=== PATIENT | female | born 1945 | race Two or more races ===

== ENCOUNTER 2024-01-22 08:50 | Inpatient (IN) | payer OTHER ==
[~2024-01-22] VITALS: Ht 165.1 cm; Wt 86.2 kg
[~2024-01-22 08:50] MED LIST: HYZAAR 50-12.51 EACH
[2024-01-22] MEDS ORDERED: SIMVASTATIN5 MG PO (09:08)
[2024-01-22] MEDS ORDERED: XARELTO10 MG (09:09)
--- NOTE | 2024-01-22 09:09 | NUR ---
PTE REFIERE DOLOR ABDOMINAL ACOMPANAOID DE NAUSEAS Y VOMITOS . PTE REFIERE HERNIA EN ABDOMEN. PTE DEL .
[2024-01-22] MEDS ORDERED: ONDANSETRON HCL 2 MG/ML VIAL ONE (09:25)
[2024-01-22] MEDS ORDERED: FAMOTIDINE/PF 20 MG/2 ML VIAL ONE (09:25)
[2024-01-22] MEDS ORDERED: FAMOtidine 10 MG/ML (4ML VIAL) IV ONE (09:30)
[2024-01-22] MEDS ORDERED: ONDANSETRON HCL 2 MG/ML VIAL IV ONE (09:30)
[2024-01-22] MEDS ORDERED: 0.9 % SODIUM CHLORIDE 1,000 ML IV ONE (09:30)
--- NOTE | 2024-01-22 09:59 | NUR ---
PTE ES ORIENTADO POR WILLIS DESAI, LA MISMA REFIERE ENTENDER. SE CANALIZA PTE CON UN ANGIO #20 EN BRAZO GABRIEL, SE RECOLECTAN MUESTRAS DE LAB Y SE ADMINISTRAN MEDICAMENTOS JOSE ELIAS ORDEN MEDICA BAJO MEDIDAS ASEPTICAS.
[2024-01-22 10:00] LABS: ABG PO2 81.2 mmHg (80-100); ABG pCO2 40.9 mmHg (35-45); BASE EXCESS 2.1 mmol/l; BICARBONATE 26.6 mmol/l (23-25); SaO2 96.3 %; Tco2 27.8 mmol/l
[2024-01-22 10:10] LABS: allen test SATISFACTORY; o2 21 %; puncture site RADIAL RIGHT
[2024-01-22 10:21] LABS: HEMATOCRIT 46.4 % (36.0-45.00); HEMOGLOBIN 15.6 g/dL (12.0-15.00); MEAN CELL VOLUME 89.1 fL (80.00-100.00); MEAN CORPUSCULAR HEMOGLOBIN 29.9 pg (27.00-32.0); MEAN CORPUSCULAR HGB CONC 33.5 g/dl (32.0-36.0); PLATELET COUNT 214 K/uL (150-450); RED BLOOD COUNT 5.21 M/uL (4.00-6.00); RED CELL DISTRIBUTION WIDTH 14.6 % (11.5-14.5)
[2024-01-22 10:32] LABS: INR 1.2; PARTIAL THROMBOPLASTIN TIME 32.2 SECONDS (22.0-34.0); PROTHROMBIN TIME 12.9 SECONDS (9.0-11.5)
[2024-01-22 10:34] LABS: BILIRUBIN TOTAL 2.65 mg/dL (0.3-1.2); CALCIUM 9.9 mg/dL (8.5-10.1); CREATININE SERUM 0.85 mg/dL (0.55-1.02); GFR 64.35; GLOBULINA 3.7 G/DL (2.4-3.5); POTASSIUM 4.19 mEq/L (3.5-5.1); TOTAL PROTEIN 7.7 gm/dL (6.4-8.2)
[2024-01-22 10:44] LABS: D DIMER 1.73 MG/L
[2024-01-22 10:53] LABS: PH,URINE 6.5 (5.0-8.0); URINE APPEARANCE Clear; URINE BILIRRUBIN Negative (NEGATIVE); URINE BLOOD Small; URINE COLOR Yellow; URINE GLUCOSE Negative (NEGATIVE); URINE KETONE Negative (NEGATIVE); URINE LEUKOCYTE Moderate; URINE NITRATE Negative; URINE PROTEIN Negative (NEGATIVE)
[2024-01-22 10:56] LABS: URINE BACTERIA 608.5 uL (0.0-1933); URINE EPITHELIAL CELLS 31.6 uL (0.0-38.8); URINE WBC 164.4 uL (0.0-23.2)
--- NOTE | 2024-01-22 15:00 | NUR ---
SE RECIBE PACIENTE ALERTA Y ORIENTADA X 3 ESFERAS EN CAMA CON BARANDAS ELEVADAS POR SEGURIDAD. PRESENTANDO BUEN PATRON RESPIRATORIO. RECIBIENDO IV'S 0.9NSS BAJANDO A 100ML/HR AREA DE VENOPUNCION NICKOLAS DE EDEMA Y ERITEMA EN BRAZO DERECHO. PENDIENTE CONSULTA CON Y . SE MANTIENE EN OBSERVACION POR CAMBIOS EN CONDICION MEDICA.
[2024-01-22] MEDS ORDERED: 0.9 % SODIUM CHLORIDE 1,000 ML IV SCH (20:45)
[2024-01-22] MEDS ORDERED: PROMETHAZINE HCL 25 MG/ML AMPUL IV PRN (20:45)
[2024-01-22] MEDS ORDERED: ACETAMINOPHEN 500 MG GEL..CAP PO PRN (20:45)
[2024-01-22] MEDS ORDERED: ONDANSETRON HCL 4 MG in 0.9 % SODIUM CHLORIDE 50 ML IV PRN (20:45)
[2024-01-22] MEDS ORDERED: MEPERIDINE HCL/PF 25 MG/ML VIAL IV PRN (20:45)
[2024-01-22] MEDS ORDERED: CIPROFLOXACIN IN 5 % DEXTROSE 400 MG/200 ML PIGGYBAG IV ONE (21:00)
[2024-01-22] MEDS ORDERED: CIPROFLOXACIN IN 5 % DEXTROSE 200 ML IV SCH (21:00)
[2024-01-23] MEDS ORDERED: METRONIDAZOLE/SODIUM CHLORIDE 500 MG/100 ML PIGGYBACK IV ONE (00:37)
[2024-01-23] MEDS ORDERED: METRONIDAZOLE/SODIUM CHLORIDE 100 ML IV SCH (01:00)
[2024-01-23] MEDS ORDERED: LOSARTAN/HYDROCHLOROTHIAZIDE 1 UDTAB TABLET PO SCH (09:00)
[2024-01-23] MEDS ORDERED: PANTOPRAZOLE SODIUM 40 MG/VIAL VIAL IV SCH (09:00)
[2024-01-23] MEDS ORDERED: DILTIAZEM HCL 60 MG TABLET PO SCH (09:00)
[2024-01-23] MEDS ORDERED: RIVAROXABAN 20 MG TABLET PO SCH (09:00)
[2024-01-23] MEDS ORDERED: SIMVASTATIN 10 MG TABLET PO SCH (17:00)
[2024-01-24] MEDS ORDERED: DIATRIZOATE MEGLUMINE, SODIUM 30 ML BOTTLE PO NR (08:00)
[2024-01-24] MEDS ORDERED: GABAPENTIN 300 MG CAPSULE PO SCH (09:00)
== END 2024-01-26 14:29 | disposition home or self-care (01) | DRG 390 ==
LOC: ER 08:52 → MEDI 20:53 → SURH 20:53
PROVIDERS: General Practice; ADMIT Colon & Rectal Surgery; ATTEND Colon & Rectal Surgery
PROC: BW21YZZ Computerized Tomography (CT Scan) of Abdomen and Pelvis using Other Contrast (ICD-10-PCS; principal; 2024-01-22)
PROC: BW21YZZ Computerized Tomography (CT Scan) of Abdomen and Pelvis using Other Contrast (ICD-10-PCS; 2024-01-24)
DX: K56.600 Partial intestinal obstruction, unspecified as to cause (principal); K43.9 Ventral hernia without obstruction or gangrene; G47.33 Obstructive sleep apnea (adult) (pediatric); I48.91 Unspecified atrial fibrillation; E78.5 Hyperlipidemia, unspecified; Z86.711 Personal history of pulmonary embolism